=== PATIENT | male | born 1975 ===

== ENCOUNTER 2021-12-30 11:30 | Inpatient (IN) | payer OTHER ==
[~2021-12-30] VITALS: Ht 167.6 cm; Wt 86.2 kg
[2021-12-30] MEDS ORDERED: UROXATRAL10 MG PO (13:40)
[2021-12-30] MEDS ORDERED: PROTONIX40 MG PO (13:40)
[2021-12-30] MEDS ORDERED: TRILIPIX135 MG PO (13:40)
[2021-12-30] MEDS ORDERED: PEPCID AC20 MG PO (13:41)
[2022-01-05] MEDS ORDERED: PEPCID AC20 MG PO (12:11)
[2022-01-05] MEDS ORDERED: OXYC1TAB9 PO (12:11)
[2022-01-05] MEDS ORDERED: HYOSCYAMINE0.125 M1 SL (12:11)
[2022-01-05] MEDS ORDERED: LEVOFLOXACIN500 MG PO (12:14)
== END 2022-01-06 00:10 | disposition home or self-care (01) | DRG 331 ==
LOC: SURH 01-01 07:00 → O/R 01-01 08:46 → SURG 01-01 08:46 → SURH 01-01 11:30 → SURG 01-01 22:59
PROVIDERS: ADMIT Surgery; ATTEND Surgery
PROC: 0DBP4ZZ Excision of Rectum, Percutaneous Endoscopic Approach (ICD-10-PCS; 2022-01-01)
PROC: 07BC4ZZ Excision of Pelvis Lymphatic, Percutaneous Endoscopic Approach (ICD-10-PCS; 2022-01-01)
PROC: 0DTN4ZZ Resection of Sigmoid Colon, Percutaneous Endoscopic Approach (ICD-10-PCS; principal; 2022-01-01 07:00)
DX: D12.5 Benign neoplasm of sigmoid colon (principal); R06.02 Shortness of breath; R19.4 Change in bowel habit; R59.0 Localized enlarged lymph nodes; I11.9 Hypertensive heart disease without heart failure; R06.81 Apnea, not elsewhere classified